=== PATIENT | male | born 1955 | race Caucasian/White ===

== ENCOUNTER → 2018-12-22 | Outpatient (REF) | payer SELFPAY ==
[~2018-12-22] MED LIST: AMBIEN10 MG PO; BL IBUPROFEN200 MG PO; GABAPENTIN300 MG PO; GABAPENTIN400 M2 PO; HYDROCODONE/ACE1 TAB PO; LEVOTHYROXINE75 MCG PO; MEDDOSEPAK PO; METHOCARBAM750 MG PO; NEURONTIN600 MG PO; PRAVASTATIN SOD20 MG PO; PRILOSEC40 MG PO; TRAMADOL HCL50 MG PO; TRAZODONE150 MG PO; TRAZODONE300 MG PO; ZOFRAN4 M1 PO; ZOLPIDEM10 M1 PO
[2018-12-22 10:13] VITALS: BP 156/99
== END | disposition home or self-care (01) | DRG 951 ==
LOC: PAIN/MGT 09:50
PROVIDERS: ATTEND Anesthesiology Pain Medicine
DX: Z09 Encounter for follow-up examination after completed treatment for conditions other than malignant neoplasm (principal)